=== PATIENT | male | born 1950 | race Caucasian/White ===

== ENCOUNTER 2021-12-27 20:21 | Inpatient (IN) | payer OTHER ==
[2021-12-27] MEDS ORDERED: Morphine 4 MG/ML VIAL ONE ×2 (20:41→22:11)
[2021-12-27] MEDS ORDERED: Ketorolac Tromethamine 30 MG/ML VIAL ONE (20:41)
[2021-12-27 21:24] LABS: Hemoglobin 16.5 g/dL (14.0-18.0); Mean Corpuscular HGB CONC 33.9 g/dL (32.0-36.0); Mean Corpuscular Volume 97.1 fL (78.0-98.0); Mean Platelet Volume 8.7 fL (7.4-10.4); Platelet Count 168 thou/uL (130-400); RBC Distribution Width 11.8 % (11.5-14.5); White Blood Cell (WBC) Count 24.7 thou/uL (4.8-10.8)
[2021-12-27 21:36] LABS: Anion Gap 15 mmol/L (10-20); BUN (Urea Nitrogen) 19 mg/dL (8.4-25.7); Calc. Creatinine Clearance 0 mL/min (70-130); Calcium 9.2 mg/dL (7.8-10.44); Carbon Dioxide 23 mmol/L (23-31); Chloride 103 mmol/L (98-107); Estimated GFR 89; Glucose 148 mg/dL (80-115); Potassium 4.5 mmol/L (3.5-5.1); Sodium 136 mmol/L (136-145)
[2021-12-27 21:45] LABS: Band 14 % (5-11); Lymphocytes 3 % (21-51); MDiff Complete? YES; Monocytes 10 % (0-10); Neutrophil 73 % (42-75)
[2021-12-27] MEDS ORDERED: Morphine 4 MG/ML VIAL SLOW IVP PRN (21:58)
[2021-12-27] MEDS ORDERED: Morphine 2 MG/ML VIAL SLOW IVP PRN (21:58)
[2021-12-27] MEDS ORDERED: Dextrose 5% in Water 1,000 ML IV PRN (21:58)
[2021-12-27] MEDS ORDERED: hydrALAZINE 20 MG/ML VIAL SLOW IVP PRN ×2 (21:58→22:05)
[2021-12-27] MEDS ORDERED: TETANUS, DIPHTHERIA TOX,ADULT (TDVAX) 0.5 ML VIAL IM ONE (21:58)
[2021-12-27] MEDS ORDERED: Ondansetron ODT 4 MG TAB PO PRN (21:58)
[2021-12-27] MEDS ORDERED: Dextrose 50% Abboject 50 ML SYRINGE SLOW IVP PRN (21:58)
[2021-12-27] MEDS ORDERED: Ondansetron PF 4 MG/2 ML Vial IVP PRN (21:58)
[2021-12-27] MEDS ORDERED: Sodium Chloride 0.9% 1,000 ML IV SCH (22:00)
[2021-12-27] MEDS: traMADol HCl 50 MG TAB PO SCH (23:45)
[2021-12-27] MEDS: Ketorolac Tromethamine 30 MG/ML VIAL IVP SCH (23:46)
[2021-12-27] MEDS: Acetaminophen 500 MG TAB PO SCH (23:46)
[2021-12-28 02:34] VITALS: BMI 33.2
[2021-12-28] MEDS: Ketorolac Tromethamine 30 MG/ML VIAL IVP SCH ×4 (04:35→21:50)
[2021-12-28] MEDS: Acetaminophen 500 MG TAB PO SCH ×4 (04:35→21:49)
[2021-12-28] MEDS: traMADol HCl 50 MG TAB PO SCH ×4 (04:35→21:49)
[2021-12-28 05:37] LABS: Bacteria/HPF None Seen HPF (None Seen); Bilirubin Negative (Negative); Blood, Urine Negative (Negative); Clarity Clear (Clear); Glucose, Urine (Dipstick) Normal (Negative); Ketone, Urine Negative (Negative); Leukocyte Negative Leu/uL (Negative); Nitrite Negative (Negative); Protein, Urine (Dipstick) 50 mg/dL (Neg-Trace); Squamous Epithelial 0-3 HPF (0-3); WBC/HPF 0-3 HPF (0-3)
[2021-12-28 05:38] LABS: Specific Gravity, Urine 1.049 (1.002-1.036)
[2021-12-28 07:42] LABS: #Basophils 0.1 thou/uL (0.0-0.2); #Eosinphils 0.1 thou/uL (0.0-0.7); #Lymphocytes 1.4 thou/uL (1.20-3.40); #Monocytes 2.3 thou/uL (0.11-0.59); #Neutrophils 14.2 thou/uL (1.40-6.50); %Basophils 0.6 % (0.0-1.0); %Eosinophils 0.4 % (0.0-10.0); %Lymphocytes 7.7 % (21.0-51.0); %Monocytes 12.9 % (0.0-10.0); %Neutrophils 78.5 % (42.0-75.0); Hemoglobin 14.7 g/dL (14.0-18.0); Mean Corpuscular HGB CONC 32.5 g/dL (32.0-36.0); Mean Corpuscular Hemoglobin 32.1 pg (27.0-31.0); Mean Corpuscular Volume 98.8 fL (78.0-98.0); Mean Platelet Volume 8.7 fL (7.4-10.4); Platelet Count 156 thou/uL (130-400); RBC Distribution Width 12.1 % (11.5-14.5); Red Blood Cell (RBC) Count 4.59 mill/uL (4.70-6.10); White Blood Cell (WBC) Count 18.1 thou/uL (4.8-10.8)
[2021-12-28 07:54] LABS: Anion Gap 12 mmol/L (10-20); BUN (Urea Nitrogen) 25 mg/dL (8.4-25.7); Calc. Creatinine Clearance 92 mL/min (70-130); Calcium 9.1 mg/dL (7.8-10.44); Carbon Dioxide 27 mmol/L (23-31); Chloride 102 mmol/L (98-107); Estimated GFR 70; Glucose 123 mg/dL (80-115); Magnesium 2.2 mg/dL (1.6-2.6); Potassium 5.1 mmol/L (3.5-5.1); Sodium 136 mmol/L (136-145)
[2021-12-28 07:56] LABS: Phosphorus 5.4 mg/dL (2.3-4.7)
[2021-12-28 08:01] LABS: SARS-CoV-2 NAA Rapid Test Not Detected (NotDetected)
[2021-12-28] MEDS ORDERED: Famotidine 20 MG TAB PO SCH (09:00)
[2021-12-28] MEDS ORDERED: FLU VACC QS2022-23(65YR UP)/PF 240 MCG/0.7 ML SYRINGE IM ONE (09:00)
[2021-12-28] MEDS: Senokot S 8.6-50 MG TAB PO SCH ×2 (09:34→21:49)
[2021-12-28] MEDS: Cyclobenzaprine 10 MG TAB PO PRN (09:34)
[2021-12-28] MEDS: Gabapentin 300 MG CAP PO SCH ×3 (09:34→21:49)
[2021-12-28] MEDS: Famotidine 20 MG TAB PO SCH ×2 (09:35→21:49)
[2021-12-28] MEDS: Morphine 4 MG/ML VIAL SLOW IVP PRN ×2 (16:17→18:35)
[2021-12-29] MEDS: traMADol HCl 50 MG TAB PO SCH ×4 (04:33→23:12)
[2021-12-29] MEDS: Acetaminophen 500 MG TAB PO SCH ×2 (04:33→09:34)
[2021-12-29] MEDS: Ketorolac Tromethamine 30 MG/ML VIAL IVP SCH ×4 (04:33→23:13)
[2021-12-29 06:07] LABS: #Eosinphils 0.2 thou/uL (0.0-0.7); #Lymphocytes 1.5 thou/uL (1.20-3.40); #Neutrophils 11.5 thou/uL (1.40-6.50); %Basophils 0.1 % (0.0-1.0); %Eosinophils 1.1 % (0.0-10.0); %Lymphocytes 9.9 % (21.0-51.0); %Neutrophils 75.9 % (42.0-75.0); Hemoglobin 13.4 g/dL (14.0-18.0); Mean Corpuscular HGB CONC 32.7 g/dL (32.0-36.0); Mean Corpuscular Hemoglobin 32.5 pg (27.0-31.0); Mean Corpuscular Volume 99.1 fL (78.0-98.0); Mean Platelet Volume 8.9 fL (7.4-10.4); Platelet Count 121 thou/uL (130-400); RBC Distribution Width 12.1 % (11.5-14.5); Red Blood Cell (RBC) Count 4.12 mill/uL (4.70-6.10); White Blood Cell (WBC) Count 15.2 thou/uL (4.8-10.8)
[2021-12-29 06:31] LABS: Anion Gap 12 mmol/L (10-20); BUN (Urea Nitrogen) 26 mg/dL (8.4-25.7); Calc. Creatinine Clearance 120 mL/min (70-130); Carbon Dioxide 27 mmol/L (23-31); Chloride 99 mmol/L (98-107); Estimated GFR 94; Glucose 96 mg/dL (80-115); Magnesium 2.2 mg/dL (1.6-2.6); Phosphorus 3.7 mg/dL (2.3-4.7); Potassium 4.2 mmol/L (3.5-5.1); Sodium 134 mmol/L (136-145)
[2021-12-29] MEDS: Enoxaparin Sodium 30 MG/0.3 ML SYRINGE SC SCH ×2 (09:33→20:41)
[2021-12-29] MEDS: Gabapentin 300 MG CAP PO SCH ×3 (09:35→20:42)
[2021-12-29] MEDS: Famotidine 20 MG TAB PO SCH ×2 (09:35→20:41)
[2021-12-29] MEDS: Senokot S 8.6-50 MG TAB PO SCH ×2 (09:35→20:42)
[2021-12-29] MEDS ORDERED: Acetaminophen/Codeine 30-300mg Tablet PO PRN (11:15)
[2021-12-29] MEDS: Acetaminophen/Codeine 30-300mg Tablet PO SCH ×3 (13:03→23:12)
[2021-12-29] MEDS: Mometasone 200 MCG/Formoterol 5 MCG 120 PUFF INHALER INH SCH (18:51)
[2021-12-29] MEDS: Cyclobenzaprine 10 MG TAB PO PRN (21:23)
[2021-12-30] MEDS: Ketorolac Tromethamine 30 MG/ML VIAL IVP SCH ×3 (05:17→17:14)
[2021-12-30] MEDS: traMADol HCl 50 MG TAB PO SCH ×3 (05:18→18:43)
[2021-12-30] MEDS: Acetaminophen/Codeine 30-300mg Tablet PO SCH (05:18)
[2021-12-30 06:04] LABS: Hemoglobin 12.2 g/dL (14.0-18.0); Mean Corpuscular HGB CONC 33.6 g/dL (32.0-36.0); Mean Corpuscular Hemoglobin 32.9 pg (27.0-31.0); Mean Corpuscular Volume 97.9 fL (78.0-98.0); Mean Platelet Volume 9.8 fL (7.4-10.4); Platelet Count 115 thou/uL (130-400); Red Blood Cell (RBC) Count 3.71 mill/uL (4.70-6.10); White Blood Cell (WBC) Count 13.2 thou/uL (4.8-10.8)
[2021-12-30] MEDS ORDERED: Sodium Chloride 0.9% 1,000 ML IV SCH ×2 (06:15→12:30)
[2021-12-30] MEDS ORDERED: Morphine 2 MG/ML VIAL SLOW IVP PRN (06:15)
[2021-12-30 06:22] LABS: Anion Gap 11 mmol/L (10-20); BUN (Urea Nitrogen) 19 mg/dL (8.4-25.7); Calc. Creatinine Clearance 136 mL/min (70-130); Calcium 9.1 mg/dL (7.8-10.44); Carbon Dioxide 30 mmol/L (23-31); Chloride 93 mmol/L (98-107); Estimated GFR 97; Glucose 89 mg/dL (80-115); Magnesium 2.2 mg/dL (1.6-2.6); Phosphorus 3.8 mg/dL (2.3-4.7); Potassium 4.4 mmol/L (3.5-5.1); Sodium 130 mmol/L (136-145)
[2021-12-30 06:30] LABS: Band 2 % (5-11); Eosinophils 1 % (0-10); Lymphocytes 9 % (21-51); MDiff Complete? YES; Monocytes 12 % (0-10); Myelocyte 2 % (0-0); Neutrophil 74 % (42-75); Platelet Morphology Comment Appears Decreased
[2021-12-30] MEDS: Mometasone 200 MCG/Formoterol 5 MCG 120 PUFF INHALER INH SCH ×2 (07:00→19:28)
[2021-12-30] MEDS: Enoxaparin Sodium 30 MG/0.3 ML SYRINGE SC SCH ×2 (08:00→21:14)
[2021-12-30] MEDS: Famotidine 20 MG TAB PO SCH ×2 (08:00→21:14)
[2021-12-30] MEDS: Gabapentin 300 MG CAP PO SCH ×3 (08:00→21:13)
[2021-12-30] MEDS: Senokot S 8.6-50 MG TAB PO SCH ×2 (08:00→21:14)
[2021-12-30] MEDS ORDERED: Ibuprofen 200 MG TAB PO PRN (08:36)
[2021-12-30] MEDS ORDERED: Acetaminophen/Codeine 30-300mg Tablet PO SCH (12:00)
[2021-12-30] MEDS: Morphine 2 MG/ML VIAL SLOW IVP PRN (12:33)
[2021-12-30] MEDS ORDERED: Lisinopril 10 MG TAB PO SCH (13:45)
[2021-12-30] MEDS: Sodium Chloride 1 GM TAB PO SCH ×2 (14:33→21:13)
[2021-12-30] MEDS: Cyclobenzaprine 10 MG TAB PO PRN (14:33)
[2021-12-30] MEDS: Acetaminophen 500 MG TAB PO SCH ×2 (14:34→17:14)
[2021-12-30] MEDS ORDERED: Furosemide 20 MG/2 ML VIAL SLOW IVP SCH (18:15)
[2021-12-30] MEDS: Melatonin 3 MG TAB PO SCH (21:13)
[2021-12-31] MEDS: traMADol HCl 50 MG TAB PO SCH ×4 (01:07→18:01)
[2021-12-31] MEDS: Acetaminophen 500 MG TAB PO SCH ×2 (01:07→06:21)
[2021-12-31] MEDS: Ketorolac Tromethamine 30 MG/ML VIAL IVP SCH ×4 (01:08→18:00)
[2021-12-31 05:57] LABS: #Eosinphils 0.2 thou/uL (0.0-0.7); #Lymphocytes 1.5 thou/uL (1.20-3.40); #Monocytes 1.6 thou/uL (0.11-0.59); #Neutrophils 9.2 thou/uL (1.40-6.50); %Basophils 0.2 % (0.0-1.0); %Eosinophils 1.8 % (0.0-10.0); %Lymphocytes 12.1 % (21.0-51.0); %Neutrophils 72.9 % (42.0-75.0); Hemoglobin 11.5 g/dL (14.0-18.0); Mean Corpuscular HGB CONC 33.3 g/dL (32.0-36.0); Mean Corpuscular Hemoglobin 32.4 pg (27.0-31.0); Mean Corpuscular Volume 97.1 fL (78.0-98.0); Mean Platelet Volume 9.1 fL (7.4-10.4); Platelet Count 117 thou/uL (130-400); RBC Distribution Width 11.9 % (11.5-14.5); Red Blood Cell (RBC) Count 3.56 mill/uL (4.70-6.10); White Blood Cell (WBC) Count 12.6 thou/uL (4.8-10.8)
[2021-12-31 06:04] LABS: Anion Gap 11 mmol/L (10-20); BUN (Urea Nitrogen) 19 mg/dL (8.4-25.7); Calc. Creatinine Clearance 152 mL/min (70-130); Carbon Dioxide 27 mmol/L (23-31); Chloride 93 mmol/L (98-107); Estimated GFR 101; Glucose 96 mg/dL (80-115); Phosphorus 3.8 mg/dL (2.3-4.7); Potassium 4.3 mmol/L (3.5-5.1); Sodium 127 mmol/L (136-145)
[2021-12-31] MEDS: Sodium Chloride 1 GM TAB PO SCH ×3 (06:21→20:53)
[2021-12-31] MEDS ORDERED: Lisinopril 10 MG TAB PO SCH ×2 (09:00→21:00)
[2021-12-31] MEDS ORDERED: Sodium Chloride 1 GM TAB PO SCH (09:00)
[2021-12-31] MEDS ORDERED: Acetaminophen/Codeine 30-300mg Tablet PO PRN (09:04)
[2021-12-31] MEDS: Polyethylene Glycol 3350 17 GM Packet PO SCH (09:26)
[2021-12-31] MEDS: Senokot S 8.6-50 MG TAB PO SCH ×2 (09:35→20:51)
[2021-12-31] MEDS: Enoxaparin Sodium 30 MG/0.3 ML SYRINGE SC SCH ×2 (09:35→20:53)
[2021-12-31] MEDS: Famotidine 20 MG TAB PO SCH ×2 (09:35→20:53)
[2021-12-31] MEDS: Gabapentin 300 MG CAP PO SCH ×3 (09:35→20:52)
[2021-12-31] MEDS: Acetaminophen/Codeine 30-300mg Tablet PO SCH ×3 (09:36→20:57)
[2021-12-31] MEDS: Mometasone 200 MCG/Formoterol 5 MCG 120 PUFF INHALER INH SCH ×2 (11:17→18:47)
[2021-12-31] MEDS ORDERED: Ibuprofen 200 MG TAB PO PRN (20:42)
[2021-12-31] MEDS: Melatonin 3 MG TAB PO SCH (20:52)
[2022-01-01] MEDS: traMADol HCl 50 MG TAB PO SCH ×4 (00:06→18:22)
[2022-01-01] MEDS: Cyclobenzaprine 10 MG TAB PO PRN (03:09)
[2022-01-01] MEDS: Acetaminophen/Codeine 30-300mg Tablet PO SCH ×4 (03:44→21:38)
[2022-01-01] MEDS: Sodium Chloride 1 GM TAB PO SCH ×3 (05:51→21:29)
[2022-01-01] MEDS: Morphine 2 MG/ML VIAL SLOW IVP PRN (05:54)
[2022-01-01 06:22] LABS: #Basophils 0.1 thou/uL (0.0-0.2); #Eosinphils 0.1 thou/uL (0.0-0.7); #Lymphocytes 1.1 thou/uL (1.20-3.40); #Monocytes 1.9 thou/uL (0.11-0.59); #Neutrophils 10.7 thou/uL (1.40-6.50); %Basophils 0.4 % (0.0-1.0); %Eosinophils 0.9 % (0.0-10.0); %Lymphocytes 7.6 % (21.0-51.0); %Monocytes 13.9 % (0.0-10.0); %Neutrophils 77.2 % (42.0-75.0); Hemoglobin 12.1 g/dL (14.0-18.0); Mean Corpuscular HGB CONC 34.5 g/dL (32.0-36.0); Mean Corpuscular Hemoglobin 33.2 pg (27.0-31.0); Mean Corpuscular Volume 96.3 fL (78.0-98.0); Mean Platelet Volume 8.8 fL (7.4-10.4); Platelet Count 152 thou/uL (130-400); RBC Distribution Width 11.8 % (11.5-14.5); Red Blood Cell (RBC) Count 3.64 mill/uL (4.70-6.10); White Blood Cell (WBC) Count 13.9 thou/uL (4.8-10.8)
[2022-01-01 06:23] LABS: Anion Gap 14 mmol/L (10-20); BUN (Urea Nitrogen) 19 mg/dL (8.4-25.7); Calc. Creatinine Clearance 150 mL/min (70-130); Calcium 9.1 mg/dL (7.8-10.44); Carbon Dioxide 26 mmol/L (23-31); Chloride 92 mmol/L (98-107); Estimated GFR 100; Glucose 97 mg/dL (80-115); Phosphorus 3.3 mg/dL (2.3-4.7); Potassium 4.1 mmol/L (3.5-5.1); Sodium 128 mmol/L (136-145)
[2022-01-01] MEDS ORDERED: Morphine 2 MG/ML VIAL SLOW IVP PRN (07:48)
[2022-01-01] MEDS: Mometasone 200 MCG/Formoterol 5 MCG 120 PUFF INHALER INH SCH ×2 (07:55→19:00)
[2022-01-01] MEDS: Lisinopril 10 MG TAB PO SCH ×2 (09:49→21:32)
[2022-01-01] MEDS: Gabapentin 300 MG CAP PO SCH ×3 (09:49→21:33)
[2022-01-01] MEDS: Enoxaparin Sodium 30 MG/0.3 ML SYRINGE SC SCH ×2 (09:49→21:33)
[2022-01-01] MEDS: Famotidine 20 MG TAB PO SCH ×2 (09:50→21:33)
[2022-01-01] MEDS: Polyethylene Glycol 3350 17 GM Packet PO SCH (09:50)
[2022-01-01] MEDS: Senokot S 8.6-50 MG TAB PO SCH ×2 (09:50→21:29)
[2022-01-01] MEDS ORDERED: Azithromycin 250 MG TAB PO SCH (12:00)
[2022-01-01] MEDS ORDERED: Amoxicillin/Potassium Clav 875 MG TAB PO SCH (21:00)
[2022-01-01] MEDS: Melatonin 3 MG TAB PO SCH (21:32)
[2022-01-02] MEDS: traMADol HCl 50 MG TAB PO SCH ×4 (00:36→18:17)
[2022-01-02] MEDS: Acetaminophen/Codeine 30-300mg Tablet PO SCH ×4 (03:50→18:10)
[2022-01-02 06:01] LABS: Anion Gap 13 mmol/L (10-20); BUN (Urea Nitrogen) 14 mg/dL (8.4-25.7); Calc. Creatinine Clearance 182 mL/min (70-130); Calcium 8.7 mg/dL (7.8-10.44); Carbon Dioxide 27 mmol/L (23-31); Chloride 91 mmol/L (98-107); Estimated GFR 106; Glucose 84 mg/dL (80-115); Potassium 4.1 mmol/L (3.5-5.1); Sodium 127 mmol/L (136-145)
[2022-01-02] MEDS: Sodium Chloride 1 GM TAB PO SCH ×4 (06:05→21:48)
[2022-01-02 06:39] LABS: Hemoglobin 11.5 g/dL (14.0-18.0); Hypochromia SLIGHT = 6-15 cells (100X) (0-5/hpf); Lymphocytes 9 % (21-51); MDiff Complete? YES; Mean Corpuscular HGB CONC 34.1 g/dL (32.0-36.0); Mean Corpuscular Hemoglobin 33.1 pg (27.0-31.0); Mean Corpuscular Volume 96.9 fL (78.0-98.0); Monocytes 17 % (0-10); Neutrophil 74 % (42-75); Platelet Count 163 thou/uL (130-400); Platelet Morphology Comment Appears Adequate; RBC Distribution Width 12.2 % (11.5-14.5); Red Blood Cell (RBC) Count 3.47 mill/uL (4.70-6.10); White Blood Cell (WBC) Count 14.4 thou/uL (4.8-10.8)
[2022-01-02] MEDS: Mometasone 200 MCG/Formoterol 5 MCG 120 PUFF INHALER INH SCH ×2 (07:10→18:55)
[2022-01-02] MEDS: Enoxaparin Sodium 30 MG/0.3 ML SYRINGE SC SCH ×2 (08:39→21:46)
[2022-01-02] MEDS: Saccharomyces boulardii 250 MG CAP PO SCH (08:40)
[2022-01-02] MEDS: Gabapentin 300 MG CAP PO SCH ×3 (08:40→21:47)
[2022-01-02] MEDS: Famotidine 20 MG TAB PO SCH ×2 (08:40→21:48)
[2022-01-02] MEDS: Lisinopril 10 MG TAB PO SCH ×2 (08:41→21:48)
[2022-01-02] MEDS: Senokot S 8.6-50 MG TAB PO SCH (08:41)
[2022-01-02] MEDS ORDERED: Azithromycin 250 MG TAB PO SCH (09:00)
[2022-01-02] MEDS: Ibuprofen 200 MG TAB PO SCH ×2 (15:22→21:46)
[2022-01-02 19:17] LABS: Troponin I 0.039 ng/mL (< 0.028)
[2022-01-02] MEDS: Melatonin 3 MG TAB PO SCH (21:48)
[2022-01-03] MEDS: Senokot S 8.6-50 MG TAB PO SCH ×3 (02:13→20:34)
[2022-01-03] MEDS: Acetaminophen/Codeine 30-300mg Tablet PO SCH ×5 (04:39→23:39)
[2022-01-03] MEDS: Ibuprofen 200 MG TAB PO SCH ×3 (05:34→20:28)
[2022-01-03] MEDS: Sodium Chloride 1 GM TAB PO SCH ×3 (05:34→20:33)
[2022-01-03 05:55] LABS: Anion Gap 12 mmol/L (10-20); BUN (Urea Nitrogen) 15 mg/dL (8.4-25.7); Calc. Creatinine Clearance 150 mL/min (70-130); Calcium 9.2 mg/dL (7.8-10.44); Carbon Dioxide 30 mmol/L (23-31); Chloride 94 mmol/L (98-107); Estimated GFR 100; Glucose 93 mg/dL (80-115); Magnesium 2.1 mg/dL (1.6-2.6); Phosphorus 3.7 mg/dL (2.3-4.7); Potassium 3.8 mmol/L (3.5-5.1); Sodium 132 mmol/L (136-145)
[2022-01-03 06:40] LABS: Band 1 % (5-11); Hemoglobin 11.3 g/dL (14.0-18.0); Lymphocytes 15 % (21-51); MDiff Complete? YES; Mean Corpuscular HGB CONC 33.7 g/dL (32.0-36.0); Mean Corpuscular Hemoglobin 32.8 pg (27.0-31.0); Mean Corpuscular Volume 97.3 fL (78.0-98.0); Mean Platelet Volume 8.2 fL (7.4-10.4); Metamyelocyte 2 % (0-0); Monocytes 10 % (0-10); Neutrophil 72 % (42-75); Platelet Count 182 thou/uL (130-400); Platelet Morphology Comment Appears Adequate; RBC Morphology Normal; Red Blood Cell (RBC) Count 3.45 mill/uL (4.70-6.10); White Blood Cell (WBC) Count 13.5 thou/uL (4.8-10.8)
[2022-01-03] MEDS: Mometasone 200 MCG/Formoterol 5 MCG 120 PUFF INHALER INH SCH ×2 (07:16→18:14)
[2022-01-03] MEDS: Enoxaparin Sodium 30 MG/0.3 ML SYRINGE SC SCH ×2 (10:15→20:37)
[2022-01-03] MEDS: Gabapentin 300 MG CAP PO SCH ×3 (10:16→20:31)
[2022-01-03] MEDS: Famotidine 20 MG TAB PO SCH ×2 (10:17→20:32)
[2022-01-03] MEDS: Saccharomyces boulardii 250 MG CAP PO SCH (10:17)
[2022-01-03] MEDS: Lisinopril 10 MG TAB PO SCH ×2 (10:17→20:32)
[2022-01-03] MEDS ORDERED: Furosemide 20 MG/2 ML VIAL SLOW IVP SCH (10:30)
[2022-01-03] MEDS ORDERED: Iopamidol-370 76% 500 ML 1 ML ONE (13:15)
[2022-01-03] MEDS ORDERED: Sodium Bicarb 50 MEQ/50 ML Abboject 8.4% SYRINGE IVP SCH (18:45)
[2022-01-03] MEDS: Melatonin 3 MG TAB PO SCH (20:28)
[2022-01-03] MEDS: Calcium Carbonate 500 MG ChewTAB PO SCH (20:35)
[2022-01-04] MEDS: Cyclobenzaprine 10 MG TAB PO PRN (03:44)
[2022-01-04] MEDS: Acetaminophen/Codeine 30-300mg Tablet PO SCH ×4 (05:40→23:38)
[2022-01-04] MEDS: Ibuprofen 200 MG TAB PO SCH ×3 (05:41→23:37)
[2022-01-04] MEDS: Sodium Chloride 1 GM TAB PO SCH (05:44)
[2022-01-04] MEDS: Mometasone 200 MCG/Formoterol 5 MCG 120 PUFF INHALER INH SCH ×2 (06:51→19:06)
[2022-01-04 06:56] LABS: Anion Gap 11 mmol/L (10-20); BUN (Urea Nitrogen) 13 mg/dL (8.4-25.7); Calc. Creatinine Clearance 138 mL/min (70-130); Calcium 9.7 mg/dL (7.8-10.44); Carbon Dioxide 35 mmol/L (23-31); Chloride 93 mmol/L (98-107); Estimated GFR 98; Glucose 111 mg/dL (80-115); Magnesium 2.1 mg/dL (1.6-2.6); Phosphorus 4.2 mg/dL (2.3-4.7); Potassium 3.7 mmol/L (3.5-5.1); Sodium 135 mmol/L (136-145)
[2022-01-04] MEDS: Enoxaparin Sodium 30 MG/0.3 ML SYRINGE SC SCH ×2 (08:59→20:47)
[2022-01-04] MEDS: Famotidine 20 MG TAB PO SCH ×2 (08:59→20:47)
[2022-01-04] MEDS: Calcium Carbonate 500 MG ChewTAB PO SCH ×2 (08:59→20:48)
[2022-01-04] MEDS: Gabapentin 300 MG CAP PO SCH ×3 (09:00→20:48)
[2022-01-04] MEDS: Saccharomyces boulardii 250 MG CAP PO SCH (09:00)
[2022-01-04] MEDS: Senokot S 8.6-50 MG TAB PO SCH ×2 (09:01→20:48)
[2022-01-04] MEDS: Lisinopril 10 MG TAB PO SCH ×2 (09:01→20:47)
[2022-01-04] MEDS ORDERED: Furosemide 20 MG/2 ML VIAL SLOW IVP SCH (09:30)
[2022-01-04] MEDS: traMADol HCl 50 MG TAB PO SCH ×3 (10:56→23:37)
[2022-01-04] MEDS ORDERED: Morphine 2 MG/ML VIAL SLOW IVP SCH (11:15)
[2022-01-04] MEDS: Melatonin 3 MG TAB PO SCH (20:48)
[2022-01-05] MEDS: traMADol HCl 50 MG TAB PO SCH ×2 (05:00→08:57)
[2022-01-05] MEDS: Ibuprofen 200 MG TAB PO SCH ×2 (05:00→15:04)
[2022-01-05 05:46] LABS: #Eosinphils 0.5 thou/uL (0.0-0.7); #Lymphocytes 2.4 thou/uL (1.20-3.40); #Monocytes 1.7 thou/uL (0.11-0.59); #Neutrophils 7.2 thou/uL (1.40-6.50); %Basophils 0.2 % (0.0-1.0); %Eosinophils 4.5 % (0.0-10.0); %Lymphocytes 20.6 % (21.0-51.0); %Monocytes 14.2 % (0.0-10.0); %Neutrophils 60.5 % (42.0-75.0); Mean Corpuscular HGB CONC 33.2 g/dL (32.0-36.0); Mean Corpuscular Hemoglobin 32.6 pg (27.0-31.0); Mean Corpuscular Volume 98.1 fL (78.0-98.0); Mean Platelet Volume 7.9 fL (7.4-10.4); Platelet Count 247 thou/uL (130-400); Red Blood Cell (RBC) Count 3.39 mill/uL (4.70-6.10); White Blood Cell (WBC) Count 11.9 thou/uL (4.8-10.8)
[2022-01-05] MEDS: Acetaminophen/Codeine 30-300mg Tablet PO SCH ×2 (05:58→12:04)
[2022-01-05 06:00] LABS: Anion Gap 9 mmol/L (10-20); BUN (Urea Nitrogen) 15 mg/dL (8.4-25.7); Calc. Creatinine Clearance 150 mL/min (70-130); Calcium 9.2 mg/dL (7.8-10.44); Carbon Dioxide 37 mmol/L (23-31); Chloride 94 mmol/L (98-107); Estimated GFR 100; Glucose 93 mg/dL (80-115); Potassium 3.8 mmol/L (3.5-5.1); Sodium 136 mmol/L (136-145)
[2022-01-05] MEDS: Mometasone 200 MCG/Formoterol 5 MCG 120 PUFF INHALER INH SCH (06:39)
[2022-01-05] MEDS: Senokot S 8.6-50 MG TAB PO SCH (08:56)
[2022-01-05] MEDS: Enoxaparin Sodium 30 MG/0.3 ML SYRINGE SC SCH (08:56)
[2022-01-05] MEDS: Lisinopril 10 MG TAB PO SCH (08:58)
[2022-01-05] MEDS: Famotidine 20 MG TAB PO SCH (08:58)
[2022-01-05] MEDS: Gabapentin 300 MG CAP PO SCH ×2 (08:58→15:05)
[2022-01-05] MEDS: Calcium Carbonate 500 MG ChewTAB PO SCH (08:59)
[2022-01-05] MEDS: Saccharomyces boulardii 250 MG CAP PO SCH (08:59)
[2022-01-05 15:40] VITALS: BP 125/85; TEMP 98.5
== END 2022-01-05 16:15 | disposition home or self-care (01) | DRG 199 ==
LOC: ERS 20:21 → SJJU 20:56
PROVIDERS: ADMIT Surgery; ATTEND Surgery
DX: S27.0XXA Traumatic pneumothorax, initial encounter (principal); J69.0 Pneumonitis due to inhalation of food and vomit; E87.1 Hypo-osmolality and hyponatremia; S22.081A Stable burst fracture of T11-T12 vertebra, initial encounter for closed fracture; Z20.822 Contact with and (suspected) exposure to COVID-19; S22.21XA Fracture of manubrium, initial encounter for closed fracture; S32.021A Stable burst fracture of second lumbar vertebra, initial encounter for closed fracture; S32.031A Stable burst fracture of third lumbar vertebra, initial encounter for closed fracture; S22.41XA Multiple fractures of ribs, right side, initial encounter for closed fracture; S32.011A Stable burst fracture of first lumbar vertebra, initial encounter for closed fracture; K52.1 Toxic gastroenteritis and colitis; W11.XXXA Fall on and from ladder, initial encounter; F17.210 Nicotine dependence, cigarettes, uncomplicated; S42.111A Displaced fracture of body of scapula, right shoulder, initial encounter for closed fracture; E27.8 Other specified disorders of adrenal gland; R91.1 Solitary pulmonary nodule; T47.4X5A Adverse effect of other laxatives, initial encounter; Z85.46 Personal history of malignant neoplasm of prostate; Z90.49 Acquired absence of other specified parts of digestive tract; Z87.19 Personal history of other diseases of the digestive system; J44.9 Chronic obstructive pulmonary disease, unspecified
CPT/HCPCS: 36415; 71045; 71275; 72020; 72100; 80048; 81003; 81015; 83735; 83880; 84100; 84484; 85025; 85379; 87040; 87070; 87205; 87811; 90714; 93005; 93010; 93970; 94640; 96374; 96375; J0360; J1650; J1885; J1940; J2270; J7050; J7620; Q9967; U0002